=== PATIENT | male | born 1995 | race Asian ===

== ENCOUNTER 2021-10-19 01:47 | Emergency (ER) | payer OTHER ==
[~2021-10-19] VITALS: Ht 170.2 cm; Wt 75.4 kg
[2021-10-19 04:16] VITALS: BP 126/67
== END 2021-10-19 04:18 | disposition home or self-care (01) ==
LOC: EMS 01:50
DX: M79.674 Pain in right toe(s) (principal); M10.9 Gout, unspecified; Z87.39 Personal history of other diseases of the musculoskeletal system and connective tissue
CPT/HCPCS: 99283